=== PATIENT | male | born 1940 | race African-American/Black ===

== ENCOUNTER 2017-11-09 14:39 | Inpatient (IN) | payer MEDICARE ==
[~2017-11-09] VITALS: Ht 185.4 cm; Wt 122.9 kg
--- NOTE | 2017-11-09 14:45 | NUR ---
PRESENTS TO ER FROM PCP'S OFFICE: SOB, HYPOXIA, OXYGEN SATURATION AT 80% AT PMD OFFICE. PATIENT ARRIVED ON NON REBREATHER MASK, 15L OXYGEN. A/OX 4. BREATHING EVEN, BUT LABORED. BP STABLE. SAFETY AND COMFORT MEASURES IN PLACE. AWAITING MD ORDERS.
--- NOTE | 2017-11-09 15:00 | NUR ---
OXYGEN SATURATION AT 100%, NO DISTRESS NOTED. PATIENT PLACED ON 3 L OXYGEN VIA NC TO ASSESS RESPIRATORY STATUS. WILL CONTINUE TO MONITOR.
[2017-11-09] MEDS ORDERED: ALBUTEROL FS 2.5 MG/3 ML VIAL.NEB CONTNEB ONE (15:30)
[2017-11-09] MEDS ORDERED: IPRATROPIUM NEB FS 0.5 MG/2.5 ML AMPUL.NEB NEB ONE (15:30)
[2017-11-09] MEDS ORDERED: methylPREDNISolone SOD SUCC 125 MG/2ML VIAL IV ONE (15:30)
--- NOTE | 2017-11-09 15:30 | NUR ---
NEW IV STARTED ON RIGHT HAND, 20G. BLOOD DRAWN AND SENT TO LAB.
[2017-11-09 15:33] LABS: BASOPHILS # (AUTO) 0.4 /CMM (0.0-0.2); BASOPHILS % (AUTO) 3.7 % (0.0-2.0); EOSINOPHILS % (AUTO) 3.5 % (0.0-6.0); HEMATOCRIT 47 % (39-51); HEMOGLOBIN 15.4 g/dL (13.5-17.5); LYMPHOCYTES # (AUTO) 1.9 /CMM (0.8-4.8); MEAN CORPUSCULAR HGB CONC 33 g/dl (31.0-36.0); MEAN CORPUSCULAR VOLUME 83 fL (80-96); MONOCYTES # (AUTO) 0.9 /CMM (0.1-1.30); MONOCYTES % (AUTO) 7.8 % (2.0-12.0); NEUTROPHILS # (AUTO) 8.1 /CMM (1.8-8.9); PLATELET COUNT (AUTO) 256 /CMM (150-450); RDW COEFFICIENT OF VARIATION 15.7 (11.5-15.0); RED BLOOD CELL COUNT(AUTO) 5.61 MIL/uL (4.5-6.0); WHITE BLOOD COUNT (AUTO) 11.7 K/uL (4.3-11.0)
[2017-11-09] MEDS ORDERED: methylPREDNISolone SOD SUCC 125 MG/2ML VIAL ONE (15:35)
--- NOTE | 2017-11-09 15:35 | NUR ---
PATIENT PLACED BACK ONTO NON REBREATHER MASK, SATURATING AT 83% ON 3 LITERS VIA NC.
[2017-11-09] MEDS ORDERED: AMLO10TA6 PO (15:41)
[2017-11-09] MEDS ORDERED: ASPI-1169 PO (15:41)
[2017-11-09] MEDS ORDERED: ALBU18HF2 IH (15:41)
[2017-11-09] MEDS ORDERED: OMEP40CA37 PO (15:41)
[2017-11-09] MEDS ORDERED: CLOP75TA15 PO (15:41)
[2017-11-09] MEDS ORDERED: FLUT1BLS IH (15:41)
[2017-11-09] MEDS ORDERED: SIMV40TA5 PO (15:41)
[2017-11-09] MEDS ORDERED: TIOT18CA3 IH (15:41)
[2017-11-09] MEDS ORDERED: MELO-107 PO (15:41)
[2017-11-09] MEDS ORDERED: HYDR-3980 PO (15:41)
[2017-11-09] MEDS ORDERED: ALLO100T PO (15:41)
[2017-11-09] MEDS ORDERED: GABA-534 PO (15:41)
--- NOTE | 2017-11-09 15:41 | NUR ---
PATIENT MEDICATED PER MD ORDERS.
[2017-11-09 15:43] LABS: CARBON DIOXIDE 23 mmol/L (21-32); CHLORIDE 108 mmol/L (98-107); CREATININE 2.2 mg/dL (0.6-1.3); GLUCOSE 100 mg/dL (74-106); POTASSIUM 3.5 mmol/L (3.5-5.1); SODIUM SERUM 143 mmol/L (136-145); UREA NITROGEN, BLOOD 26 mg/dL (7-18)
[2017-11-09 15:45] LABS: INR 1.04 (0.85-1.15)
--- NOTE | 2017-11-09 16:00 | NUR ---
RT AT BEDSIDE FOR BIPAP PER MD ORDERS.
[2017-11-09] MEDS ORDERED: IPRATROPIUM NEB FS 0.5 MG/2.5 ML AMPUL.NEB ONE (16:04)
[2017-11-09] MEDS ORDERED: ALBUTEROL FS 2.5 MG/3 ML VIAL.NEB ONE (16:04)
[2017-11-09] MEDS: ALBUTEROL FS 2.5 MG/3 ML VIAL.NEB CONTNEB SCH ×3 (16:30→23:04)
[2017-11-09] MEDS ORDERED: methylPREDNISolone SOD SUCC 125 MG/2ML VIAL IV SCH (16:30)
[2017-11-09] MEDS: IPRATROPIUM NEB FS 0.5 MG/2.5 ML AMPUL.NEB NEB SCH ×2 (16:30→19:46)
[2017-11-09 16:42] LABS: ABG OXYGEN SATURATION 91.4 % (92.0-98.5); ABG PCO2 37.9 mmHg (35.0-45.0); ABG PH 7.343 (7.350-7.450); ABG PO2 66.2 mmHg (75.0-100.0); AaDO2 175.4 mmHg; COHb 1.5 % (0.5-1.5); MetHb 0.5 % (0.0-1.5); O2Hb 89.6 % (94.0-97.0); SITE, ABG Right Radial; VENT MODE, BG ST 15/5 RR 12 40%
[2017-11-09 16:47] LABS: TROPONIN I 0.054 ng/mL (0.00-0.056)
[2017-11-09] MEDS ORDERED: FUROSEMIDE 40 MG/4 ML VIAL ONE (16:48)
--- NOTE | 2017-11-09 16:50 | NUR ---
SECOND IV STARTED ON LEFT HAND, 20G.
--- NOTE | 2017-11-09 16:55 | NUR ---
RT NOTE INH TX DUPLICATE ORDER. GIVEN IN ER
[2017-11-09] MEDS ORDERED: LEVOFLOXACIN (500MG) 500 MG TABLET PO ONE (17:00)
[2017-11-09] MEDS ORDERED: FUROSEMIDE 20 MG/2 ML VIAL IV SCH (17:00)
[2017-11-09] MEDS ORDERED: IV NS 0.9% 1,000 ML IV PRN (17:00)
--- NOTE | 2017-11-09 17:03 | NUR ---
REPORT GIVEN TO CHATO MILLER FOR ALYSSA UPON ADMISSION.
--- NOTE | 2017-11-09 17:17 | NUR ---
CUSHION MAT MAKER NOTES NOTIFIED DR FERRER REGARDING CHEST XRAY RESULT , VERIFIED IVF ORDER OF NS @ 60ML/HR , PER MD CASTILLO IVF ORDERED , START PT ON Q6 MILD SLIDING SCALE , AND START PATIENT ON SOLUMEDROL 60MG Q6 AFTER THE FIRST DOSE RECEIVED IN ER . ORDERS CARRIED OUT .
[2017-11-09 17:30] VITALS: BP 121/71
[2017-11-09] MEDS ORDERED: HYDROCODONE/APAP 10/325MG 1 EA TABLET PO PRN (17:30)
[2017-11-09] MEDS ORDERED: DEXTROSE 50%-WATER 50 ML DISP.SYRIN IV PRN (17:30)
[2017-11-09] MEDS ORDERED: ALBUTEROL FS 2.5 MG/0.5 ML VIAL.NEB NEB PRN (17:30)
--- NOTE | 2017-11-09 17:30 | NUR ---
PATIENT TRANSPORTED TO ICU, 252 VIA ACLS PROTOCOL. RNCHATO TO PROVIDE ALYSSA.
--- NOTE | 2017-11-09 17:35 | NUR ---
TRANSFORMER ASSEMBLY SUPERVISOR NOTES RECEIVED PATIENT AOX3-4 FROM ER DUE TO HYPOXIC RESPIRATORY FAILURE , ON 10LPM MASK SPO2 OF 93-95% TOLERATING WELL , DENIES SOB AND DISCOMFORT AT THIS TIME , SR 65 ON BEDSIDE MONITOR , SKIN IS INTACT NO WOUNDS NOTED UPON BODY ASSESSMENT , IV OF R HAND AND L HAND # 20 PATENT AND INTACT SL , BELONGINGS CHECKED , ADMISSION ORDERS CARRIED OUT , WILL CONTINUE TO MONITOR .
[2017-11-09] MEDS: BLOOD SUGAR DIAGNOSTIC 1 EACH STRIP IN SCH ×2 (17:48→23:22)
[2017-11-09] MEDS: HEPARIN SODIUM, PORCINE 5000 UNITS/1 ML VIAL SQ SCH (17:50)
[2017-11-09] MEDS ORDERED: MAGNESIUM HYDROXIDE 30 ML UDC PO PRN (18:00)
[2017-11-09] MEDS ORDERED: ACETAMINOPHEN 325 MG TABLET PO PRN (18:00)
[2017-11-09] MEDS ORDERED: ONDANSETRON HCL/PF 4 MG/2 ML VIAL IVP PRN (18:00)
[2017-11-09] MEDS ORDERED: MAG HYDROX/AL HYDROX/SIMETH 30 ML UDC PO PRN (18:00)
[2017-11-09] MEDS ORDERED: ZOLPIDEM TARTRATE 5 MG TABLET PO PRN (18:00)
--- NOTE | 2017-11-09 18:00 | NUR ---
ANIMAL SURGEON NOTES SEEN AND EVALUATED BY DR VALDEZ , DISCUSSED LABS , CHEST XRAY , AND HISTORY , V/S STABLE , AFEBRILE , TOLERATING 10LPM MASK , SPO2 OF 95% , PER MD START PT ON 2GM SODIUM DIET , VERIFIED DIET ORDER PT HISTORY SAYS PT IS DIABETIC , PT DENIES HISTORY OF DIABETES TO DR VALDEZ ,. MD AWARE
[2017-11-09 20:00] VITALS: BP 128/77
[2017-11-09] MEDS ORDERED: FUROSEMIDE 40 MG/4 ML VIAL IV ONE (21:00)
[2017-11-09] MEDS: methylPREDNISolone SOD SUCC 125 MG/2ML VIAL IV SCH (21:13)
--- NOTE | 2017-11-09 23:00 | NUR ---
PT REFUSED BIPAP AT THIS TIME. NO RESPIRATORY DISTRESS NOTED, ANGELA IBARRA NOTIFIED.
--- NOTE | 2017-11-09 23:22 | NUR ---
MOLDING MANAGER DF PT REFUSED PRN NOCTURNAL BIPAP.PT COMFORTABLE ON SIMPLE MASK AT 8-10 LPM.PT UNDERSTANDS IMPORTANCE OF BIPAP COMPLIANCE, PT SAYS HE HAS A DIFFICULT TIME WITH BIPAP AND AGREES TO WEAR IT IF HE IS SHORT OF BREATH.PT COMFORTABLE ON SIMPLE MASK,DENIES SOB,VSS,NO ACUTE DISTRESS NOTED. PT AGREES IF HE GET DISTRESS/SOB HE WILL GO ON BIPAP. ACCU CHECK DONE VALUE OF 98 NO COVERAGE NEEDED.
[2017-11-10] VITALS (16 sets, daily range): BP systolic 104–134; BP diastolic 54–75
[2017-11-10] MEDS: HEPARIN SODIUM, PORCINE 5000 UNITS/1 ML VIAL SQ SCH ×3 (00:30→17:33)
--- NOTE | 2017-11-10 00:31 | NUR ---
AUTOMATIC NAILING MACHINE FEEDER DF PT REFUSED HEPARIN SQ, PT WANTS TO SLEEP PT REPORTS HE HAD HEPARIN ABOUT 8 HOURS AGO. ORDER IS FOR Q 8.PT AGREED TO TAKE HEPARIN WHILE AWAKE. PT A/OX4, VSS.
[2017-11-10] MEDS: IPRATROPIUM NEB FS 0.5 MG/2.5 ML AMPUL.NEB NEB SCH ×5 (01:10→19:38)
[2017-11-10] MEDS: ALBUTEROL FS 2.5 MG/3 ML VIAL.NEB CONTNEB SCH ×5 (03:38→23:30)
[2017-11-10 04:58] LABS: HEMATOCRIT 46 % (39-51); HEMOGLOBIN 14.9 g/dL (13.5-17.5); LYMPHOCYTES # (AUTO) 0.7 /CMM (0.8-4.8); LYMPHOCYTES % (AUTO) 7.3 % (20.0-44.0); MEAN CORPUSCULAR HGB CONC 32 g/dl (31.0-36.0); MEAN CORPUSCULAR VOLUME 84 fL (80-96); MONOCYTES % (AUTO) 0.4 % (2.0-12.0); NEUTROPHILS # (AUTO) 8.8 /CMM (1.8-8.9); NEUTROPHILS % (AUTO) 92.3 % (43.0-81.0); PLATELET COUNT (AUTO) 228 /CMM (150-450); RDW COEFFICIENT OF VARIATION 16.6 (11.5-15.0); RED BLOOD CELL COUNT(AUTO) 5.46 MIL/uL (4.5-6.0); WHITE BLOOD COUNT (AUTO) 9.6 K/uL (4.3-11.0)
[2017-11-10 05:24] LABS: CALCIUM, SERUM 8.8 mg/dL (8.5-10.1); CARBON DIOXIDE 23 mmol/L (21-32); CHLORIDE 107 mmol/L (98-107); CREATININE 2.3 mg/dL (0.6-1.3); GLUCOSE 166 mg/dL (74-106); MAGNESIUM 1.8 mg/dL (1.8-2.4); PHOSPHORUS 3.1 mg/dL (2.5-4.9); POTASSIUM 3.9 mmol/L (3.5-5.1); SODIUM SERUM 142 mmol/L (136-145); UREA NITROGEN, BLOOD 29 mg/dL (7-18)
[2017-11-10] MEDS: BLOOD SUGAR DIAGNOSTIC 1 EACH STRIP IN SCH ×3 (05:55→17:58)
[2017-11-10] MEDS: methylPREDNISolone SOD SUCC 125 MG/2ML VIAL IV SCH ×3 (05:55→17:28)
--- NOTE | 2017-11-10 05:57 | NUR ---
rn visiting df pt accu check of 171 pt refuses insulin coverage pt does not normally take insulin and does not want to now. i explained to pt importance of managing diabetes and pt would like to speak with md and his PCP.I will forward infor to day shift rn to inform day time rounding md/general store manager team.
[2017-11-10] MEDS: PANTOPRAZOLE 40 MG TABLET.DR PO SCH (07:46)
--- NOTE | 2017-11-10 08:00 | NUR ---
DIPPING MACHINE OPERATOR: pt. is A/Ox3, no c/o now, no pain, SR, BP WNL, O2 sat. 96-100% on 6L SM now, refused for Insulin SS coverage, Bipap, NRBM before by report, Hb A1c is still pending, am BS 177
[2017-11-10] MEDS: FLUTICASONE/VILANTEROL 1 EACH BLST.W.DEV IH SCH (08:17)
[2017-11-10] MEDS: Z GUARD REMEDY 2 OZ OINT TP PRN (08:17)
[2017-11-10] MEDS: ALLOPURINOL 100 MG TABLET PO SCH (08:58)
[2017-11-10] MEDS: GABAPENTIN 300 MG CAPSULE PO SCH ×3 (08:58→17:28)
[2017-11-10] MEDS: CLOPIDOGREL BISULFATE 75 MG TABLET PO SCH (08:58)
[2017-11-10] MEDS: ASPIRIN 81 MG TAB.CHEW PO SCH (08:58)
[2017-11-10] MEDS: MELOXICAM 7.5 MG TABLET PO SCH (08:58)
[2017-11-10] MEDS: AMLODIPINE BESYLATE 10 MG TABLET PO SCH (08:59)
[2017-11-10] MEDS ORDERED: TIOTROPIUM BROMIDE 6 CAP/BOX CAP.W.DEV IH SCH (09:00)
--- NOTE | 2017-11-10 09:00 | NUR ---
EVENT LIGHTING SPECIALIST: RT placed pt on n/c O2 6L, O2 sat. 91-93%, no SOB. is in room, updated with pt.current condition, VS, I/O, meds, Plavix, Heparin sq, steroids, BS, Hb A1c pending, ordered: 2D echo, crane follower consult
[2017-11-10] MEDS: ATORVASTATIN 10 MG TABLET PO SCH (09:02)
--- NOTE | 2017-11-10 09:10 | NUR ---
KST OPERATOR: updated with pt.VS, O2sat., I/O, continue monitoring, titrate O2
[2017-11-10] MEDS ORDERED: BUMETANIDE INJ 8 MG in IV NS 0.9% 48 ML IV ONE (10:30)
--- NOTE | 2017-11-10 12:30 | NUR ---
INDUSTRIAL PARAMEDIC: pt.is rest, no SOB, no pain, on 6L n/c O2 sat. 92-95%, SR, BS 208/refused for Insulin sq SS, was notified before
--- NOTE | 2017-11-10 14:30 | NUR ---
FRENCH PROFESSOR: O2 sat. 93-95% now, O2 n/c 5L, reevaluated pt., see new orders, changed steroids doses, ok to transfer to [facility]/Tele. 2D echo done.
--- NOTE | 2017-11-10 16:45 | NUR ---
MILITARY PERSONNEL SPECIALIST: full report was given for ANGELA Peña, pt is going to [facility], pt.is rest, no SOB, O2 sat. 91-94% on 5L n/c, no pain, no c/o, SR, BP WNL
[2017-11-10] MEDS: LEVOFLOXACIN (250MG) 250 MG TABLET PO SCH (17:31)
--- NOTE | 2017-11-10 17:45 | NUR ---
BIOLOGICAL SCIENCE TECHNICIAN: pt.is transferred to [facility]
--- NOTE | 2017-11-10 18:20 | NUR ---
[facility] RN NOTE 1800: Received patient from ICU for initial admitting Dx RF, on 4LPM of O2 via NC, 93% O2 sat, no respiratory distress noted. Bumex drip ongoing, able to use urinals. A/Ox4. Aware for the POC. PIVs intact. VSS. 1820: No significant changes. Eating dinner, diet tolerated well. Encouraged to use call light when needed assistance.
--- NOTE | 2017-11-10 19:30 | NUR ---
TD RN: RECEIVED A/O X4, ON 4 02 VIA NC WT NO ACUTE DISTRESS. C/O HEAD ACHE (11/14), WILL GIVE PAIN MED NEEDED. SR ON TELE MONITOR. AFEBRILE. IV SITES INTACT WT NO S/S OF INFILTRATION. HOB AT 35 DEGREES. SAFETY PRECAUTION NOTED. CALL LIGHT KEPT WITHIN REACH. WILL CONTINUE TO MONITOR.
[2017-11-10] MEDS: HYDROCODONE/APAP 5/325MG 1 EACH TABLET PO PRN (20:00)
[2017-11-11] VITALS: BP 126/68
[2017-11-11] MEDS: HEPARIN SODIUM, PORCINE 5000 UNITS/1 ML VIAL SQ SCH ×3 (00:17→16:09)
[2017-11-11] MEDS: BLOOD SUGAR DIAGNOSTIC 1 EACH STRIP IN SCH ×4 (00:27→17:45)
[2017-11-11] MEDS: INSULIN REGULAR, HUMAN 100 UNIT/ML 3 ML VIAL SQ PRN ×4 (00:29→17:47)
[2017-11-11] MEDS: ALBUTEROL FS 2.5 MG/3 ML VIAL.NEB CONTNEB SCH ×6 (03:13→23:04)
[2017-11-11 04:00] VITALS: BP 112/61
--- NOTE | 2017-11-11 05:50 | NUR ---
TD RN: NO ALYSSA DURING THE SHIFT. ON 02 VIA NC WT NO ACUTE DISTRESS. NO C/O PAIN. VS WITHIN HIS BASELINE. SAFETY PRECAUTION NOTED AT ALL TIMES.
[2017-11-11 06:29] LABS: BASOPHILS % (AUTO) 0.1 % (0.0-2.0); HEMATOCRIT 44 % (39-51); HEMOGLOBIN 14.3 g/dL (13.5-17.5); LYMPHOCYTES # (AUTO) 0.8 /CMM (0.8-4.8); LYMPHOCYTES % (AUTO) 4.3 % (20.0-44.0); MEAN CORPUSCULAR HGB CONC 33 g/dl (31.0-36.0); MEAN CORPUSCULAR VOLUME 84 fL (80-96); MONOCYTES # (AUTO) 0.8 /CMM (0.1-1.30); MONOCYTES % (AUTO) 4.2 % (2.0-12.0); NEUTROPHILS # (AUTO) 17.6 /CMM (1.8-8.9); NEUTROPHILS % (AUTO) 91.4 % (43.0-81.0); PLATELET COUNT (AUTO) 231 /CMM (150-450); RED BLOOD CELL COUNT(AUTO) 5.19 MIL/uL (4.5-6.0); WHITE BLOOD COUNT (AUTO) 19.3 K/uL (4.3-11.0)
[2017-11-11 06:45] LABS: TROPONIN I 0.031 ng/mL (0.00-0.056)
[2017-11-11 06:55] LABS: ALANINE AMINOTRANSFERASE 21 U/L (12-78); ALBUMIN 3.2 g/dL (3.4-5.0); ALKALINE PHOSPHATASE 56 U/L (46-116); ASPARTATE AMINOTRANSFERASE 16 U/L (15-37); BILIRUBIN,TOTAL 0.4 mg/dL (0.2-1.0); CALCIUM, SERUM 8.9 mg/dL (8.5-10.1); CARBON DIOXIDE 24 mmol/L (21-32); CHLORIDE 104 mmol/L (98-107); CREATININE 2.5 mg/dL (0.6-1.3); GLUCOSE 150 mg/dL (74-106); MAGNESIUM 1.6 mg/dL (1.8-2.4); PHOSPHORUS 3.3 mg/dL (2.5-4.9); SODIUM SERUM 139 mmol/L (136-145); TOTAL PROTEIN, SERUM 7.6 g/dL (6.4-8.2); UREA NITROGEN, BLOOD 39 mg/dL (7-18)
[2017-11-11] MEDS: IPRATROPIUM NEB FS 0.5 MG/2.5 ML AMPUL.NEB NEB SCH ×4 (07:19→19:31)
--- NOTE | 2017-11-11 07:30 | NUR ---
[facility] RN INITIAL NOTES RECEIVED PATIENT AWAKE IN BED, AOX3, ON NC 2L, TOLERATING WELL 91% 02 SAT, ON TELE MONITOR NSR, 60s HR, ABLE TO AMBULATE, URINAL AT BEDSIDE, IV R HAND 20G, SL, CLEAN AND PATENT BED IN LOW AND LOCKED POSITION, CALL LIGHT WITHIN REACH, WILL CONTINUE TO MONITOR
[2017-11-11 08:00] VITALS: BP 115/63
[2017-11-11] MEDS ORDERED: Magnesium 1GM/D5W 100ML PREMIX PIGGYBACK IV ONE (08:30)
[2017-11-11] MEDS: methylPREDNISolone SOD SUCC 125 MG/2ML VIAL IV SCH (08:43)
[2017-11-11] MEDS: FLUTICASONE/VILANTEROL 1 EACH BLST.W.DEV IH SCH (08:43)
[2017-11-11] MEDS: PANTOPRAZOLE 40 MG TABLET.DR PO SCH (08:43)
[2017-11-11] MEDS: AMLODIPINE BESYLATE 10 MG TABLET PO SCH (08:44)
[2017-11-11] MEDS: GABAPENTIN 300 MG CAPSULE PO SCH ×3 (08:44→16:04)
[2017-11-11] MEDS: ASPIRIN 81 MG TAB.CHEW PO SCH (08:44)
[2017-11-11] MEDS: CLOPIDOGREL BISULFATE 75 MG TABLET PO SCH (08:44)
[2017-11-11] MEDS: MELOXICAM 7.5 MG TABLET PO SCH (08:44)
[2017-11-11] MEDS: ALLOPURINOL 100 MG TABLET PO SCH (08:44)
[2017-11-11] MEDS: ATORVASTATIN 10 MG TABLET PO SCH (08:45)
[2017-11-11] MEDS: HYDROCODONE/APAP 5/325MG 1 EACH TABLET PO PRN (08:59)
[2017-11-11] MEDS ORDERED: PRED50TA PO (09:17)
[2017-11-11] MEDS ORDERED: LEVO250T2 PO (09:17)
[2017-11-11] MEDS ORDERED: FURO-145 PO (09:22)
[2017-11-11] MEDS: Magnesium 1GM/D5W 100ML PREMIX 100 ML IV SCH ×2 (10:35→11:59)
[2017-11-11 16:00] VITALS: BP 119/69
[2017-11-11] MEDS: LEVOFLOXACIN (250MG) 250 MG TABLET PO SCH (16:04)
[2017-11-11] MEDS: FUROSEMIDE 20 MG TABLET PO SCH (16:04)
--- NOTE | 2017-11-11 18:45 | NUR ---
PHARMACY ANALYST END NOTES PATIENT RESTING IN BED, NO SIGNS OF DISTRESS, ALL NEEDS ATTENDED TO, WILL ENDORSE TO LIVESTOCK FARMER FOR CONTINUITY OF CARE.
--- NOTE | 2017-11-11 19:32 | NUR ---
MS RN NOTES RECEIVED PT ON BED AWAKE, A/0X4. ON NC 4L SATURATING 92%. IV ACCESS ON RHAND #20 AND LHAND #20 SL RUNNING WELL. . HEAD OF BED ELEVATED. SIDE RAILS UP. CALL LIGHT WITHIN REACH. WILL CONTINUE TO MONITOR PT CLOSELY.
[2017-11-11 20:00] VITALS: BP 124/74
[2017-11-12] MEDS: BLOOD SUGAR DIAGNOSTIC 1 EACH STRIP IN SCH ×3 (00:39→12:19)
[2017-11-12] MEDS: HEPARIN SODIUM, PORCINE 5000 UNITS/1 ML VIAL SQ SCH ×3 (00:43→16:13)
[2017-11-12] MEDS: ALBUTEROL FS 2.5 MG/3 ML VIAL.NEB CONTNEB SCH ×4 (03:08→15:00)
[2017-11-12 04:00] VITALS: BP 127/69
--- NOTE | 2017-11-12 06:17 | NUR ---
MS RN NOTES NO ACUTE CHANGES NOTED DURING THE SHIFT. DUE MEDS GIVEN. PROVIDED COMFORT AND SAFETY. WILL ENDORSE TO THE AM NURSE FOR ALYSSA.
--- NOTE | 2017-11-12 07:15 | NUR ---
RN INITIAL NOTES: REC'D PT ASLEEP ON BED, NOT IN ANY DISTRESS, A/O X 4, DENIES ANY PAIN/DISCOMFORT. ON NC AT 4LPM, NO SOB (TITRATED DOWN TO 2LPM). HAS 2 IV LINE ACCESS - R HAND G20 & L HAND G20, SL, BOTH FLUSHED, PATENT & INTACT W/ NO S/SX OF INFECTION/INFILTRATION NOTED. PROVIDED COMFORT & SAFETY MEASURES. BED KEPT LOW & IN LOCKED POS. CALL LIGHT PLACED W/IN REACH. WILL CONTINUE TO MONITOR & ATTEND PT NEEDS.
[2017-11-12] MEDS: IPRATROPIUM NEB FS 0.5 MG/2.5 ML AMPUL.NEB NEB SCH ×3 (07:34→15:00)
[2017-11-12 08:00] VITALS: BP 112/68
[2017-11-12] MEDS: MELOXICAM 7.5 MG TABLET PO SCH (08:32)
[2017-11-12] MEDS: CLOPIDOGREL BISULFATE 75 MG TABLET PO SCH (08:32)
[2017-11-12] MEDS: ALLOPURINOL 100 MG TABLET PO SCH (08:32)
[2017-11-12] MEDS: ATORVASTATIN 10 MG TABLET PO SCH (08:32)
[2017-11-12] MEDS: AMLODIPINE BESYLATE 10 MG TABLET PO SCH (08:33)
[2017-11-12] MEDS: GABAPENTIN 300 MG CAPSULE PO SCH ×3 (08:33→16:11)
[2017-11-12] MEDS: ASPIRIN 81 MG TAB.CHEW PO SCH (08:33)
[2017-11-12] MEDS: PANTOPRAZOLE 40 MG TABLET.DR PO SCH (08:33)
[2017-11-12] MEDS: FUROSEMIDE 20 MG TABLET PO SCH (08:33)
[2017-11-12] MEDS: FLUTICASONE/VILANTEROL 1 EACH BLST.W.DEV IH SCH (08:34)
[2017-11-12] MEDS: Z GUARD REMEDY 2 OZ OINT TP PRN (08:34)
[2017-11-12 09:14] LABS: CALCIUM, SERUM 8.5 mg/dL (8.5-10.1); CARBON DIOXIDE 24 mmol/L (21-32); CHLORIDE 107 mmol/L (98-107); CREATININE 2.2 mg/dL (0.6-1.3); GLUCOSE 110 mg/dL (74-106); POTASSIUM 3.9 mmol/L (3.5-5.1); SODIUM SERUM 142 mmol/L (136-145); UREA NITROGEN, BLOOD 40 mg/dL (7-18)
[2017-11-12] MEDS: INSULIN REGULAR, HUMAN 100 UNIT/ML 3 ML VIAL SQ PRN (12:20)
--- NOTE | 2017-11-12 13:00 | NUR ---
RN NOTES: PT SEEN & EXAMINED BY DHRUV LU W/ DC ORDERS.
[2017-11-12 13:07] LABS: BASOPHILS % (AUTO) 0.1 % (0.0-2.0); HEMATOCRIT 44 % (39-51); HEMOGLOBIN 14.4 g/dL (13.5-17.5); LYMPHOCYTES # (AUTO) 1.1 /CMM (0.8-4.8); LYMPHOCYTES % (AUTO) 6.9 % (20.0-44.0); MEAN CORPUSCULAR HGB CONC 33 g/dl (31.0-36.0); MEAN CORPUSCULAR VOLUME 84 fL (80-96); MONOCYTES # (AUTO) 0.9 /CMM (0.1-1.30); MONOCYTES % (AUTO) 5.5 % (2.0-12.0); NEUTROPHILS # (AUTO) 14.5 /CMM (1.8-8.9); NEUTROPHILS % (AUTO) 87.5 % (43.0-81.0); PLATELET COUNT (AUTO) 226 /CMM (150-450); RDW COEFFICIENT OF VARIATION 16.5 (11.5-15.0); RED BLOOD CELL COUNT(AUTO) 5.25 MIL/uL (4.5-6.0); WHITE BLOOD COUNT (AUTO) 16.5 K/uL (4.3-11.0)
[2017-11-12] MEDS ORDERED: LEVO500T75 PO (14:20)
[2017-11-12 16:00] VITALS: BP 126/70
[2017-11-12] MEDS: LEVOFLOXACIN (250MG) 250 MG TABLET PO SCH (16:11)
--- NOTE | 2017-11-12 16:30 | NUR ---
STEAM ROLLER OPERATOR NOTES: PT DC'D TO HOME ORDERED. DC DOCUMENTS EXPLAINED & PROVIDED TO THE PT INCLUDING THE FOLLOW UP APPOINTMENTS W/ VERBALIZATION OF UNDERSTANDING. IV LINE ACCESS REMOVED, PRESSURE DRESSING APPLIED, NO SIGN OF BLEEDING NOTED. SKIN IS INTACT. ALL BELONGINGS SENT W/ PT, PER PT NOTHING IS MISSING. NO CONCERN IDENTIFIED DURING DC. PT WAS DC VIA WHEELCHAIR ACCOMPANIED BY WHITTLING ROOM OPERATOR & DTR. PT LEFT FACILITY IN STABLE CONDITION, NOT IN ANY RESPIRATORY DISTRESS.
[2017-11-12] MEDS ORDERED: MUPIROCIN OINT 2% 22 GM TUBE SCH (21:00)
== END 2017-11-12 16:20 | disposition home or self-care (01) | DRG 291 ==
LOC: ER 14:41 → ICU 16:28 → TELE-TD 11-10 18:04 → MEDSG1 11-11 09:35
PROVIDERS: ADMIT Internal Medicine; ATTEND Internal Medicine
DX: I13.0 Hypertensive heart and chronic kidney disease with heart failure and stage 1 through stage 4 chronic kidney disease, or unspecified chronic kidney disease (principal); J96.21 Acute and chronic respiratory failure with hypoxia; R65.11 Systemic inflammatory response syndrome (SIRS) of non-infectious origin with acute organ dysfunction; I50.33 Acute on chronic diastolic (congestive) heart failure; N17.9 Acute kidney failure, unspecified; J44.1 Chronic obstructive pulmonary disease with (acute) exacerbation; D72.829 Elevated white blood cell count, unspecified; Z99.81 Dependence on supplemental oxygen; I25.10 Atherosclerotic heart disease of native coronary artery without angina pectoris; N18.9 Chronic kidney disease, unspecified; E11.22 Type 2 diabetes mellitus with diabetic chronic kidney disease; E78.5 Hyperlipidemia, unspecified; E66.01 Morbid (severe) obesity due to excess calories; Z68.35 Body mass index [BMI] 35.0-35.9, adult; M10.9 Gout, unspecified; Z87.891 Personal history of nicotine dependence; G47.33 Obstructive sleep apnea (adult) (pediatric); I48.91 Unspecified atrial fibrillation; E83.42 Hypomagnesemia
CPT/HCPCS: 36415; 36600; 71045-TC; 80048-TC; 80053-TC; 82962-TC; 83735-TC; 83880; 84100-TC; 84484-TC; 85025-TC; 85730-TC; 87081-TC; 93307-TC; 94799-TC; A4216; A4606; J1644; J1815; J1940; J2930; J3475; J3490; Z7610